=== PATIENT | female | born 1965 | race Native Hawaiian/Other Pacific Islander ===

== ENCOUNTER 2016-03-28 19:11 | Emergency (ER) | payer OTHER ==
[~2016-03-28] VITALS: Ht 152.4 cm; Wt 57.6 kg
[2016-03-28 21:50] VITALS: BP 138/78; TEMP 98.7
== END 2016-03-28 21:50 | disposition home or self-care (01) ==
LOC: ED 19:11
PROC: 2W2DX4Z Dressing of Left Lower Arm using Bandage (ICD-10-PCS; principal; 2016-03-28)
PROC: 2W2EX4Z Dressing of Right Hand using Bandage (ICD-10-PCS; 2016-03-28)
PROC: 2W2FX4Z Dressing of Left Hand using Bandage (ICD-10-PCS; 2016-03-28)
PROC: 2W2CX4Z Dressing of Right Lower Arm using Bandage (ICD-10-PCS; 2016-03-28)
DX: T23.392A Burn of third degree of multiple sites of left wrist and hand, initial encounter (principal); T23.391A Burn of third degree of multiple sites of right wrist and hand, initial encounter; T22.312A Burn of third degree of left forearm, initial encounter; T22.311A Burn of third degree of right forearm, initial encounter; T31.11 Burns involving 10-19% of body surface with 10-19% third degree burns; X15.3XXA Contact with hot saucepan or skillet, initial encounter
CPT/HCPCS: 90471; 90715; 99283

== ENCOUNTER 2017-10-12 08:30 | Outpatient (CLI) | payer OTHER | END 2017-10-12 19:37 | disposition home or self-care (01) | LOC: MAMMO 08:30 | DX: Z12.31 Encounter for screening mammogram for malignant neoplasm of breast (principal) ==

== ENCOUNTER 2018-06-28 12:27 | Observation (INO) | payer OTHER ==
[~2018-06-28] VITALS: Ht 157.5 cm; Wt 58.1 kg
[2018-06-28 13:00] VITALS: BP 135/66; TEMP 97.6
[2018-06-28 14:48] LABS: PLATELET COUNT 178 K/uL (152-353)
[2018-06-28 15:11] LABS: POTASSIUM 3.5 mmol/L (3.6-5.2)
[2018-06-28 16:00] VITALS: BP 115/71; TEMP 97.7
[2018-06-28 16:09] VITALS: BP 135/66; TEMP 97.6; Ht 157.5 cm; Wt 58.1 kg
[2018-06-28] MEDS ORDERED: SERT50TA PO (17:21)
[2018-06-28] MEDS ORDERED: DIVA250T2 PO (17:22)
[2018-06-28] MEDS ORDERED: PHEN50CH2 PO ×3 (17:23→17:25)
[2018-06-28] MEDS ORDERED: AMIT25TA22 PO (17:25)
[2018-06-28] MEDS ORDERED: HYDROXYZINE HYD25 MG PO (17:26)
[2018-06-28 20:00] VITALS: BP 110/62; TEMP 98.3
[2018-06-29] VITALS: BP 125/74; TEMP 98.2
[2018-06-29 04:00] VITALS: BP 105/69; TEMP 98.2
[2018-06-29 05:52] LABS: POTASSIUM 4.1 mmol/L (3.6-5.2)
[2018-06-29 08:00] VITALS: BP 124/73; TEMP 98.4
[2018-06-29 12:00] VITALS: BP 124/68; TEMP 98.2
[2018-06-29 16:00] VITALS: BP 128/76; TEMP 97.7
[2018-06-29 19:53] VITALS: BP 138/76; TEMP 98.2
[2018-06-30] VITALS: BP 138/69; TEMP 98
[2018-06-30 04:00] VITALS: BP 128/74; TEMP 98.1
[2018-06-30 08:00] VITALS: BP 139/73; TEMP 98
[2018-06-30 12:00] VITALS: BP 124/71; TEMP 98.1
== END 2018-06-30 14:20 | disposition home or self-care (01) ==
LOC: MED/SURG 12:27
PROVIDERS: ADMIT Family Medicine
DX: E86.0 Dehydration (principal); T42.0X5A Adverse effect of hydantoin derivatives, initial encounter; Y92.89 Other specified places as the place of occurrence of the external cause; G40.802 Other epilepsy, not intractable, without status epilepticus; I10 Essential (primary) hypertension; H66.93 Otitis media, unspecified, bilateral
CPT/HCPCS: 36415; 80048; 80053; 80185; 81000; 82542; 85027; 96361; 96365; 96367; 99220; G0378; G0379; J0696; J3490